=== PATIENT | female | born 1990 | race Caucasian/White ===

== ENCOUNTER 2016-11-27 07:51 | Outpatient (CLI) | payer MEDICAID ==
[~2016-11-27] VITALS: Ht 168.9 cm; Wt 120.0 kg
[2016-11-27 08:29] VITALS: BP 125/81
[2016-11-27] MEDS ORDERED: LEVO25TA2 PO (09:49)
== END 2016-11-27 09:54 | disposition home or self-care (01) ==
LOC: LDOP 07:51
PROVIDERS: ATTEND Obstetrics & Gynecology
DX: O26.893 Other specified pregnancy related conditions, third trimester (principal); O62.9 Abnormality of forces of labor, unspecified; O48.0 Post-term pregnancy; O99.283 Endocrine, nutritional and metabolic diseases complicating pregnancy, third trimester; E07.9 Disorder of thyroid, unspecified; R10.9 Unspecified abdominal pain; Z3A.40 40 weeks gestation of pregnancy
CPT/HCPCS: 59025; 99211; G0463

== ENCOUNTER 2016-11-27 21:39 | Outpatient (CLI) | payer MEDICAID ==
[~2016-11-27 21:39] MED LIST: LEVO25TA2 PO
== END 2016-11-27 22:50 | disposition home or self-care (01) ==
LOC: LAB 21:39 → LDOP 22:50
PROVIDERS: ATTEND Obstetrics & Gynecology
DX: O26.893 Other specified pregnancy related conditions, third trimester (principal); O48.0 Post-term pregnancy; O99.283 Endocrine, nutritional and metabolic diseases complicating pregnancy, third trimester; E07.9 Disorder of thyroid, unspecified; R10.9 Unspecified abdominal pain; Z3A.40 40 weeks gestation of pregnancy
CPT/HCPCS: 59025; 99211; G0463

== ENCOUNTER 2016-11-28 11:47 | Inpatient (IN) | payer MEDICAID ==
[~2016-11-28] VITALS: Ht 167.6 cm; Wt 120.0 kg
[2016-11-28] MEDS ORDERED: OXYTOCIN 30U/ 0.9% NaCL 500ML 500 ML IV ONE (12:41)
[2016-11-28] MEDS: LACTATED RINGERS 1,000 ML IV SCH ×3 (12:41→20:46)
[2016-11-28 12:52] VITALS: BP 141/86
[2016-11-28] MEDS ORDERED: TERBUTALINE 1 MG/ML, 1ML IVPush PRN ×2 (13:00)
[2016-11-28] MEDS ORDERED: ONDANSETRON 2MG/ML, 2ML IVPush PRN (13:00)
[2016-11-28] MEDS ORDERED: FENTANYL PF 100 MCG/2ML IV PRN (13:00)
[2016-11-28] MEDS ORDERED: TERBUTALINE 1 MG/ML, 1ML SQ PRN (13:00)
[2016-11-28] MEDS ORDERED: LIDOCAINE 1%, 20ML ONE (13:45)
[2016-11-28] MEDS ORDERED: OXYTOCIN 30U/ 0.9% NaCL 500ML 500 ML ONE (13:45)
[2016-11-28] MEDS ORDERED: NEWBORN KIT ONE (13:45)
[2016-11-28] MEDS ORDERED: MISOPROSTOL 200 MCG TABLET ONE (13:45)
[2016-11-28] MEDS ORDERED: FENTANYL PF 100 MCG/2ML ONE ×2 (17:45→19:32)
[2016-11-28] MEDS: FENTANYL PF 100 MCG/2ML IVPush PRN ×2 (17:47→19:36)
[2016-11-28] MEDS ORDERED: FENTANYL/BUPIV./NS/PF 250 ML EPIDCONT SCH (20:46)
[2016-11-28] MEDS ORDERED: EPHEDRINE 50 MG/ML, 1ML IVPush PRN (21:00)
[2016-11-28] MEDS ORDERED: LACTATED RINGERS 1,000 ML IVBOLUS PRN (21:00)
[2016-11-28] MEDS ORDERED: NALOXONE 0.4 MG/ML, 1ML IVPush PRN (21:00)
[2016-11-28] MEDS ORDERED: BUPIVACAINE/PF 0.25% ONE (21:33)
[2016-11-28] MEDS ORDERED: FENTANYL/BUPIV./NS/PF 250 ML EPIDCONT ONE ×2 (21:33→21:34)
[2016-11-28] MEDS ORDERED: BUPIVACAINE 0.25% ONE (21:34)
[2016-11-29] MEDS ORDERED: ACETAMINOPHEN 325 MG TABLET ONE (02:13)
[2016-11-29] MEDS ORDERED: ACETAMINOPHEN 500 MG TABLET PO ONE (02:30)
[2016-11-29] MEDS ORDERED: D5%-LACTATED RINGERS 1,000 ML IV SCH (02:30)
[2016-11-29] MEDS: D5%-LACTATED RINGERS 1,000 ML IV SCH ×3 (02:34→22:34)
[2016-11-29] MEDS: LACTATED RINGERS 1,000 ML IV SCH ×2 (04:41→04:46)
[2016-11-29] MEDS ORDERED: IBUPROFEN 600 MG TABLET ONE (05:45)
[2016-11-29] MEDS ORDERED: OXYTOCIN 30U/ 0.9% NaCL 500ML 500 ML ONE (05:46)
[2016-11-29] MEDS: IBUPROFEN 800 MG TABLET PO PRN ×3 (05:55→22:30)
[2016-11-29] MEDS: OXYTOCIN 30U/ 0.9% NaCL 500ML 500 ML IV SCH ×2 (06:52→16:52)
[2016-11-29] MEDS ORDERED: MISOPROSTOL 200 MCG TABLET PR PRN (07:00)
[2016-11-29] MEDS ORDERED: ACETAMINOPHEN 325 MG TABLET PO PRN ×2 (07:00)
[2016-11-29] MEDS ORDERED: ONDANSETRON 2MG/ML, 2ML IV PRN (07:00)
[2016-11-29] MEDS ORDERED: DOCUSATE 100 MG CAPSULE PO PRN (07:00)
[2016-11-29] MEDS ORDERED: CALCIUM CARBONATE 500 MG TAB.CHEW PO PRN (07:00)
[2016-11-29] MEDS: LEVOTHYROXINE 25 MCG TABLET PO SCH (08:12)
[2016-11-29 08:15] VITALS: BP 123/81
[2016-11-29] MEDS: PRENATAL VIT/IRON/FA 1 EACH TABLET PO SCH (09:00)
[2016-11-29 12:00] VITALS: BP 121/82
[2016-11-29 13:43] LABS: DIFF TOTAL CELLS COUNTED 100 CELL DIFF
[2016-11-29 13:45] LABS: VERIFY COUNTS? YES
[2016-11-29 16:30] VITALS: BP 128/80
[2016-11-29] MEDS: OXYcodone/APAP 5/325MG TABLET PO PRN ×2 (18:03→22:31)
[2016-11-29 19:50] VITALS: BP 110/66
[2016-11-30 01:25] VITALS: BP 124/75
[2016-11-30] MEDS: OXYTOCIN 30U/ 0.9% NaCL 500ML 500 ML IV SCH ×2 (02:52→11:02)
[2016-11-30] MEDS: LEVOTHYROXINE 25 MCG TABLET PO SCH (06:17)
[2016-11-30] MEDS: IBUPROFEN 800 MG TABLET PO PRN (07:42)
[2016-11-30] MEDS: PRENATAL VIT/IRON/FA 1 EACH TABLET PO SCH (07:42)
[2016-11-30] MEDS: OXYcodone/APAP 5/325MG TABLET PO PRN ×2 (07:42→12:37)
[2016-11-30] MEDS: D5%-LACTATED RINGERS 1,000 ML IV SCH (08:34)
[2016-11-30] MEDS ORDERED: MEASLES,MUMPS&RUBELLA VACC/PF 0.5 ML SQ-VACC ONE (11:30)
[2016-11-30] MEDS ORDERED: IBUP-1222 PO (13:46)
[2016-11-30] MEDS ORDERED: OXYC-302 PO (13:46)
== END 2016-11-30 16:03 | disposition home or self-care (01) | DRG 774 ==
LOC: LDOP 11:47 → LDIP 12:34 → 2NW 11-29 08:11
PROVIDERS: ADMIT Obstetrics & Gynecology; ATTEND Obstetrics & Gynecology
PROC: 10E0XZZ Delivery of Products of Conception, External Approach (ICD-10-PCS; principal; 2016-11-29)
PROC: 00HU33Z Insertion of Infusion Device into Spinal Canal, Percutaneous Approach (ICD-10-PCS; 2016-11-29)
PROC: 3E0R3CZ (ICD-10-PCS; 2016-11-29)
PROC: 10907ZC Drainage of Amniotic Fluid, Therapeutic from Products of Conception, Via Natural or Artificial Opening (ICD-10-PCS; 2016-11-29)
PROC: 0HQ9XZZ Repair Perineum Skin, External Approach (ICD-10-PCS; 2016-11-29)
DX: O48.0 Post-term pregnancy (principal); O75.2 Pyrexia during labor, not elsewhere classified; Z68.41 Body mass index [BMI] 40.0-44.9, adult; O99.214 Obesity complicating childbirth; Z37.0 Single live birth; E66.01 Morbid (severe) obesity due to excess calories; Z3A.40 40 weeks gestation of pregnancy; O77.0 Labor and delivery complicated by meconium in amniotic fluid; O70.0 First degree perineal laceration during delivery; Z23 Encounter for immunization
CPT/HCPCS: 36415; 82803; 85025; 86850; 86900; 89060; J3010; J3490; J2590; J7120; J7121; Q0114